=== PATIENT | female | born 1945 | race Caucasian/White ===

== ENCOUNTER 2021-01-23 18:24 | Inpatient (IN) | payer MEDICARE, BC ==
[~2021-01-23] VITALS: Ht 167.6 cm; Wt 74.8 kg
[2021-01-23 19:41] LABS: BASOPHILS ABSOLUTE AUTO 0.05 K/mm3 (0.00-0.23); BASOPHILS PERCENT AUTO 1 % (0-2); EOSINOPHILS ABSOLUTE AUTO 0.22 K/mm3 (0.00-0.68); EOSINOPHILS PERCENT AUTO 2 % (0-6); Hematocrit 46.7 % (33.0-51.0); Hemoglobin 15.5 g/dL (11.5-16.0); IMMATURE GRAN ABSOLUTE AUTO 0.03 K/mm3 (0.00-0.10); IMMATURE GRAN PERCENT AUTO 0 % (0-1); LYMPHOCYTES ABSOLUTE AUTO 1.43 K/mm3 (0.84-5.20); LYMPHOCYTES PERCENT AUTO 14 % (21-46); MONOCYTES ABSOLUTE AUTO 0.67 K/mm3 (0.16-1.47); MONOCYTES PERCENT AUTO 7 % (4-13); Mean Corpuscular HGB 29.8 pg (26.0-34.0); Mean Corpuscular HGB Conc 33.2 g/dL (31.5-36.5); Mean Corpuscular Volume 90 fL (80-100); Mean Platelet Volume 11.5 fL (9.1-12.4); NEUTROPHILS ABSOLUTE AUTO 7.79 K/mm3 (1.96-9.15); NEUTROPHILS PERCENT AUTO 76 % (41-73); Platelet Count 316 K/mm3 (150-400); RDW Coefficient Variation 13.4 % (11.7-14.2); RDW Standard Deviation 44.6 fL (35.1-46.3); White Blood Cell Count 10.19 K/mm3 (4.00-11.30)
[2021-01-23 20:03] LABS: Alanine Aminotransfer (ALT/SGP 25 U/L (12-78); Albumin, Blood 3.8 g/dL (3.4-5.0); Alk Phos 38 U/L (50-136); Anion Gap 5 mmol/L (6-16); Aspartate Aminotrans (AST/SGOT 24 U/L (12-37); Bilirubin, Total 0.6 mg/dL (0.1-1.0); Blood Urea Nitrogen 24 mg/dL (8-24); Bun/Creatinine Ratio 32.4 (12.0-20.0); CO2, Blood 29 mmol/L (21-32); Calcium, Blood 9.8 mg/dL (8.5-10.1); Chloride, Blood 103 mmol/L (98-108); Creatinine, Blood 0.74 mg/dL (0.40-1.00); Glomerular Filtration Rate >60 (60-); Glucose, Blood 115 mg/dL (70-99); Potassium, Blood 3.7 mmol/L (3.5-5.5); Sodium, Blood 137 mmol/L (136-145); Total Protein, Blood 7.8 g/dL (6.4-8.2); Troponin I <0.015 ng/mL (0.000-0.040)
--- NOTE | 2021-01-23 23:26 | NUR ---
PATIENT ARRIVED ON UNIT FROM ER AT 2250 TODAY 01/23/21. PATIENT IS ALERT AND ORIENTED X4. VS ARE WNL AND ON RA. PAIN IS MANAGED WITH IV DILAUDID AND ZOFRAN. SHE HAS AN NG TUBE CONNECTED TO INTERMITTENT SUCTION WITH PALOMARES/BROWN LIQUID GOING INTO CONTAINER. SHE WAS ABLE TO MOVE FROM ER BED TO UNIT BED A SBA. EDUCATED PROSECUTING ATTORNEY LIGHT USE. IV FLUIDS RUNNING. CALL LIGHT WITHIN REACH. PATIENT IS CURRENTLY LAYING IN BED SITTING UP WITH EYES CLOSED.
--- NOTE | 2021-01-24 02:38 | NUR ---
SHIFT SUMMARY: SMALL BOWEL OBSTRUCTION PATIENT IS ALERT AND ORIENTED X4. VS ARE WNL AND IS ON RA. PAIN IS CONTROLLED WITH IV DILAUDID AND ZOFRAN FOR NAUSEA. SHE HAS AN NG TUBE THAT WAS PLACED IN THE ER PRIOR TO ARRIVAL ON UNIT. IT IS IN PLACE AND IS SUCTIONING ON LOW INTERMITTENT. THE OUTPUT IS A LIGHT BROWN/PALOMARES COLOR IN CANISTER. PATIENT IS ABLE TO VOID IN THE BEDSIDE COMMODE. CALLS APPROPRIATELY WHEN NEEDING SOMETHING. PATIENT IS CURRENTLY LAYING IN BED SITTING UP. CALL LIGHT IS WITHIN REACH. SHE HAS BEEN NPO SINCE MIDNIGHT. THE PLAN IS TO HAVE DR. ZAMORA EVALUATE THE PATIENT IN THE MORNING TO SEE THE NEXT STEPS.
[2021-01-24] MEDS ORDERED: NIFE30ER PO (11:06)
[2021-01-24] MEDS ORDERED: Phendimetrazine35 MG PO (11:06)
[2021-01-24] MEDS ORDERED: HYDCHL12.5 PO (11:07)
--- NOTE | 2021-01-24 18:09 | NUR ---
SHIFT SUMMARY PT ADMITTED FOR SBO AND CP. NG TUBE IN PLACE AND DRAINING. CANNISTER CHANGED #1 THIS SHIFT. PT HAS AFIB AND HAS BEEN IN THE 90'S-140'S. PT TO HAVE XRAY W/CONTRAST WELL ECHO. MEDICATED #2 FOR PAIN THIS SHIFT. IV INFUSING. VSS.
--- NOTE | 2021-01-24 18:34 | NUR ---
Echocardiogram completed.
--- NOTE | 2021-01-25 04:45 | NUR ---
PT VSS T/O NIGHT; HR AFIB 100-120 PER TELE MONITOR. HR DOES INC UP TO 130 WHEN PT UP IN ROOM. PT DENIED CP/PRESSURE/SOB. NGT HAD APPX 600ML CLEAR/GREEN OUTPUT. ABD SOFT/NON TENDER, BT REMAIN HYPO, PT REP NO FLATUS. PT DENIED ANY ABD PAIN/N/V. PT DID C/O THROAT IRRITATION R/T NGT, MEDICATED FOR HEADACHE AND THROAT IRRITATION PER EMAR. PT NPO X FEW ICE CHIPS, IVF CONT PER ORDERS. PT INDEP TO BSC, IS USING CALL LIGHT FOR ASSISTANCE.
[2021-01-25 05:31] LABS: Anion Gap 4 mmol/L (6-16); Blood Urea Nitrogen 17 mg/dL (8-24); Bun/Creatinine Ratio 24.4 (12.0-20.0); CO2, Blood 30 mmol/L (21-32); Calcium, Blood 8.7 mg/dL (8.5-10.1); Chloride, Blood 111 mmol/L (98-108); Glomerular Filtration Rate >60 (60-); Glucose, Blood 104 mg/dL (70-99); Potassium, Blood 3.8 mmol/L (3.5-5.5); Sodium, Blood 145 mmol/L (136-145)
[2021-01-25 15:03] LABS: Influenza A, PCR NEGATIVE (NEGATIVE); Influenza B, PCR NEGATIVE (NEGATIVE); Resp Syncytial Virus, PCR NEGATIVE (NEGATIVE); SARS-Cov-2 (COVID-19) PCR, MMC NEGATIVE (NEGATIVE)
--- NOTE | 2021-01-25 19:19 | NUR ---
SHIFT SUMMARY PT A/O X4. REPORTS PAIN IN THROAT RELATED TO NG TUBE. NG TUBE REPOSITIONED AND RETAPED AND THE PATIENT REPORTED RELIEF. SMALL BOWEL FOLLOW UP DONE. PT TO HAVE ADDITIONAL IMAGING DONE TOMORROW. POSSIBLE SURGERY. NG TUBE DRAINING BROWN/DARK GREEN FLUID. PT REMINDED OF NPO STATUS AND DAUGHTER REMINDED OF VISITING HOURS. VSS. PAIN AND NAUSEA TREATED PER EMR.
--- NOTE | 2021-01-26 05:05 | NUR ---
DAUGHTER DAIN CALLED IN FOR UPDATE. PT GAVE VERBAL PERMISSION TO GIVE DAUGHTER DAIN UPDATES AND HEALTH INFO. DAUGHTER UPDATED PER PT REQ.
--- NOTE | 2021-01-26 06:00 | NUR ---
PT VSS T/O NIGHT; HR AFIB 100-112 PER TELE MONITOR. PT DENIED CP/SOB. ABD SOFT, PT DENIED ABD PAIN/N/V. BT ACTIVE THIS AM, PT REP PASSING FLATUS, DID HAVE 1 MED BROWN UNFORMED BM THIS AM. PT DENIED PAIN W/BM. NGT TO LIS, PUT OUT APPX 450 BROWN [address]NG. PT MED FOR PAIN X2, REP PAIN IN BACK AND THROAT R/T NGT. PT NPO X FEW ICE CHIPS, IVF CONT PER ORDERS. PT AMB IN HALLS X1, IS INDEP TO BSC.
--- NOTE | 2021-01-26 16:18 | NUR ---
TELE REMOVED BY PT. DECLINES TO WEAR IT.
--- NOTE | 2021-01-26 16:58 | NUR ---
SHIFT SUMMARY PT
[2021-01-26] MEDS ORDERED: XARELTO20 MG PO (17:59)
--- NOTE | 2021-01-26 18:10 | NUR ---
DISCHARGE NEW MED FAXED TO [facility]. DIET RESTRICTIONS DISCUSSED. DECLINES W/C AND ESCORTED OUT BY HER .
== END 2021-01-26 18:17 | disposition home or self-care (01) | DRG 390 ==
LOC: ER 18:24 → SURS 18:25
PROVIDERS: Internal Medicine; Student in an Organized Health Care Education/Training Program; ADMIT Surgery
DX: K56.609 Unspecified intestinal obstruction, unspecified as to partial versus complete obstruction (principal); I48.91 Unspecified atrial fibrillation; Z20.822 Contact with and (suspected) exposure to COVID-19; I73.00 Raynaud's syndrome without gangrene; Z87.891 Personal history of nicotine dependence
CPT/HCPCS: 0241U; 36415; 71045; 74019; 74177; 74250; 80048; 80053; 83690; 83735; 84484; 85025; 93005; 93010; 93306; 96374-59; 96375; 96376; 99285-25; A9270; G0378; J1170; J1650; J2405; J7030; J7120; Q9967